=== PATIENT | male | born 1980 | race Caucasian/White ===

== ENCOUNTER 2021-06-06 17:42 | Emergency (ER) | payer SELFPAY ==
[~2021-06-06] VITALS: Ht 172.7 cm; Wt 92.1 kg
[2021-06-06 17:54] VITALS: BP 143/96
[2021-06-06] MEDS ORDERED: FLUORESCEIN OPTH STRIP 1 MG ONE (18:05)
[2021-06-06] MEDS ORDERED: TOMOMETER 1 DEV DEV MC ONE (18:06)
[2021-06-06] MEDS ORDERED: TETRACAINE HCL/PF 0.5% OPTH 4 ML BTL ONE (18:07)
--- NOTE | 2021-06-06 18:08 | NUR ---
DR GARCIA EVALUATING PATIENT AT BEDSIDE.
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
[2021-06-06] MEDS ORDERED: CILOS RIGHT EYE ×2 (19:09→19:12)
[2021-06-06] MEDS ORDERED: CILOS LEFT EYE (19:14)
== END 2021-06-06 20:07 | disposition home or self-care (01) ==
LOC: MED 17:42
DX: S05.02XA Injury of conjunctiva and corneal abrasion without foreign body, left eye, initial encounter (principal); H16.002 Unspecified corneal ulcer, left eye; Z79.899 Other long term (current) drug therapy; X58.XXXA Exposure to other specified factors, initial encounter; Y93.89 Activity, other specified; Y92.89 Other specified places as the place of occurrence of the external cause; Y99.8 Other external cause status
CPT/HCPCS: 99283